=== PATIENT | male | born 1945 | race Caucasian/White ===

== ENCOUNTER 2025-07-25 15:53 | Emergency (ER) | payer MEDICARE, OTHER ==
[~2025-07-25] VITALS: Ht 180.3 cm; Wt 99.0 kg
[~2025-07-25 15:53] MED LIST: BREO ELLIPTA I1 EACH INH; FINASTERIDE5 MG PO; FLOMAX0.4 MG PO; HYDROCHLOROTHIA25 MG PO; LEVOTHYROXINE175 MCG PO; SIMVASTATIN20 MG PO; VALSARTAN160 MG PO
[2025-07-25] MEDS ORDERED: SODIUM CHLORIDE 0.9% 1,000 ML IV PRN (16:30)
[2025-07-25 16:44] LABS: BASOPHILS 0.2 % (0.2-1.2); EOSINOPHILS 0.1 % (0.8-7.0); LYMPHOCYTES 5.9 % (21.8-53.1); MCH 29.0 PG (25.7-32.2); MCHC 34.6 g/dL (32.3-36.5); MCV 83.7 fL (79.0-92.2); MONOCYTES 7.0 % (5.3-12.2); NEUTROPHILS 86.3 % (34.0-67.9); RBC 5.04 M/uL (4.63-6.08)
[2025-07-25 17:20] LABS: ALT (SGPT) 8.0 U/L (14-59); AST (SGOT) 14.0 U/L (15-37); GLOMERULAR FILTRATION RATE,EST 63.0 mL/min (>60); PROTEIN, TOTAL 6.8 g/dL (6.4-8.2); UREA NITROGEN 23.0 mg/dL (7-18)
[2025-07-25 18:11] VITALS: BP 111/64
[2025-07-26] MEDS ORDERED: CARBIDOPA-LEVO1 EAC1 PO (12:00)
[2025-07-26] MEDS ORDERED: LOSARTAN POTAS100 MG PO (12:00)
[2025-07-26] MEDS ORDERED: HYDROCODON-ACE1 EA10 PO (13:21)
--- NOTE | 2025-07-26 17:32 | EKG ---
[facility] [address] [facility] [place] [address] Signed Normal sinus rhythm Left axis deviation Right bundle branch block Possible Lateral infarct , age undetermined Abnormal ECG No previous ECGs available Confirmed by Jeniffer Mackey MD () on 07/26/2025 5:32:31 PM Electronically Signed By: JENIFFER MACKEY MD 07/26/25 1732 PATIENT NAME: SOCO ALMANZAR Electrocardiogram DATE OF : 49 PHYSICIAN: JENIFFER MACKEY MD REPORT #: [id number] REPORT IS CONFIDENTIAL AND NOT TO BE RELEASED WITHOUT AUTHORIZATION
== END 2025-07-25 18:11 | disposition home or self-care (01) ==
LOC: ED 15:53
PROVIDERS: Emergency Medicine
DX: R55 Syncope and collapse (principal); E86.0 Dehydration; Z79.51 Long term (current) use of inhaled steroids; Z79.899 Other long term (current) drug therapy
CPT/HCPCS: 36415; 80053; 84484; 85025; 93005; 93010; 99284-25; J7030

== ENCOUNTER 2025-07-26 11:42 | Emergency (ER) | payer MEDICARE, OTHER ==
[~2025-07-26] VITALS: Ht 180.3 cm; Wt 101.2 kg
--- OUTSIDE RECORDS SUMMARY | 2025-07-26 11:46 | XMS ---
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 Reg has no Care Guidelines for this patient. Jaz VISIT COUNT (12 MO.) 2 [facility] [place] [facility]. TOTAL 2 NOTE: Visits indicate total known visits. ED/[facility] VISIT TRACKING (12 MO.) 07/26/2025 11:43 [facility] [place] TYPE: Emergency COMPLAINT: - BACK PAIN 07/25/2025 15:54 [facility] [place] TYPE: Emergency COMPLAINT: - [facility] INPATIENT VISIT TRACKING (12 MO.) No inpatient visits to display in this time frame [email or web address]
[2025-07-26] MEDS ORDERED: CARBIDOPA-LEVO1 EAC1 PO (12:00)
[2025-07-26] MEDS ORDERED: LOSARTAN POTAS100 MG PO (12:00)
[2025-07-26] MEDS ORDERED: HYDROCODONE/ACETA 5/325 TAB PO ONE (12:00)
[2025-07-26] MEDS ORDERED: HYDROCODON-ACE1 EA10 PO (13:21)
[2025-07-26 14:13] VITALS: BP 118/67
== END 2025-07-26 14:10 | disposition home or self-care (01) ==
LOC: ED 11:42
DX: S23.3XXA Sprain of ligaments of thoracic spine, initial encounter (principal); W18.30XA Fall on same level, unspecified, initial encounter; Z79.899 Other long term (current) drug therapy
CPT/HCPCS: 72070; 99284